=== PATIENT | female | born 1990 | race Asian ===

== ENCOUNTER 2017-07-03 17:24 | Emergency (ER) | payer OTHER ==
[~2017-07-03] VITALS: Ht 149.9 cm; Wt 78.6 kg
[~2017-07-03 17:24] MED LIST: DESO1TAB33; METF500T4 PO
[2017-07-03 17:32] VITALS: BP 134/87
[2017-07-03] MEDS ORDERED: KETOROLAC 30 MG/1 ML ONE (20:06)
[2017-07-03] MEDS ORDERED: ONDANSETRON ODT 4 MG ONE (20:06)
[2017-07-03] MEDS ORDERED: KETOROLAC 30 MG/1 ML IM ONE (20:30)
[2017-07-03] MEDS ORDERED: ONDANSETRON ODT 4 MG PO ONE (20:30)
== END 2017-07-03 20:15 | disposition home or self-care (01) ==
LOC: ED 20:13
DX: S16.1XXA Strain of muscle, fascia and tendon at neck level, initial encounter (principal); V49.49XA Driver injured in collision with other motor vehicles in traffic accident, initial encounter; Y93.89 Activity, other specified; Y92.488 Other paved roadways as the place of occurrence of the external cause; Y99.8 Other external cause status
CPT/HCPCS: 72125; 96372; 99284; J1885; Q0162

== ENCOUNTER 2017-07-05 12:26 | Emergency (ER) | payer OTHER ==
[~2017-07-05] VITALS: Ht 149.9 cm; Wt 75.2 kg
[2017-07-05 14:55] VITALS: BP 111/68
== END 2017-07-05 14:57 | disposition home or self-care (01) ==
LOC: ED 13:24
DX: S06.0X0A Concussion without loss of consciousness, initial encounter (principal); Z90.49 Acquired absence of other specified parts of digestive tract; V43.52XA Car driver injured in collision with other type car in traffic accident, initial encounter; Y93.89 Activity, other specified; Y92.89 Other specified places as the place of occurrence of the external cause; Y99.8 Other external cause status
CPT/HCPCS: 70450; 99284

== ENCOUNTER 2019-06-13 11:01 | Day surgery (SDC) | payer OTHER ==
[~2019-06-13] VITALS: Ht 149.9 cm; Wt 80.7 kg
[~2019-06-13 11:01] MED LIST changes: +METF500T17 PO; -METF500T4 PO
[2019-06-13] MEDS ORDERED: SODIUM CHLORIDE 0.9% 1,000 ML IV SCH (11:46)
[2019-06-13 11:47] VITALS: BP 122/84
[2019-06-13 12:30] LABS: INTERNATIONAL NORMALIZED RATIO 0.99 (0.93-1.1); PROTHROMBIN TIME 10.4 Seconds (9.6-11.5)
[2019-06-13] MEDS ORDERED: NALOXONE 1 MG/ML, 2ML ONE (13:00)
[2019-06-13] MEDS ORDERED: MIDAZOLAM 1 MG/ML, 5ML ONE (13:00)
[2019-06-13] MEDS ORDERED: FLUMAZENIL 0.1 MG/1 ML, 5ML ONE (13:00)
[2019-06-13] MEDS ORDERED: FENTANYL PF 100 MCG/2ML ONE (13:00)
[2019-06-13] MEDS ORDERED: LIDOCAINE 1%, 10ML ONE (13:02)
[2019-06-13] MEDS ORDERED: HYDROcodone/APAP 5/325 TABLET PO ONE (15:00)
[2019-06-13] MEDS ORDERED: HYDROcodone/APAP 5/325 TABLET ONE (15:01)
== END 2019-06-13 15:45 | disposition home or self-care (01) ==
LOC: OUT 11:01 → EDSTATUS 13:00 → OUT 15:45
PROVIDERS: ATTEND Internal Medicine
DX: K76.0 Fatty (change of) liver, not elsewhere classified (principal); J45.909 Unspecified asthma, uncomplicated; E11.9 Type 2 diabetes mellitus without complications; F41.9 Anxiety disorder, unspecified; K21.9 Gastro-esophageal reflux disease without esophagitis; Z72.89 Other problems related to lifestyle; Z79.84 Long term (current) use of oral hypoglycemic drugs; Z79.890 Hormone replacement therapy; Z79.899 Other long term (current) drug therapy; Z90.49 Acquired absence of other specified parts of digestive tract; Z82.49 Family history of ischemic heart disease and other diseases of the circulatory system; Z82.3 Family history of stroke
CPT/HCPCS: 36415; 47000; 76942; 85610; 88307; 88313; 99156; 99157; J2250; J3010; J2310